=== PATIENT | female | born 1955 | race Two or more races ===

== ENCOUNTER 2021-09-29 06:00 | Day surgery (SDC) | payer OTHER ==
[~2021-09-29] VITALS: Ht 154.9 cm; Wt 60.3 kg
[~2021-09-29 06:00] MED LIST: CRESTOR5 MG PO; FOSTEUM PO; GABAPENTIN100 M2 PO; HYZAAR 100/25 T1 TAB PO; IMODIUM A-D2 MG PO; ZESTRIL5 MG PO; [UNRECOGNIZED DRUG - OTHER] PO
[2021-09-29] MEDS ORDERED: ULTRAM50 MG PO (11:44)
== END 2021-09-29 13:10 | disposition home or self-care (01) ==
LOC: CIR.AMB 06:00
PROVIDERS: ATTEND Surgery
DX: R15.9 Full incontinence of feces (principal); Z20.822 Contact with and (suspected) exposure to COVID-19; I11.0 Hypertensive heart disease with heart failure; I50.1 Left ventricular failure, unspecified; Z95.0 Presence of cardiac pacemaker
CPT/HCPCS: 64581; 64590; 95972; C1778; L8679

== ENCOUNTER 2025-03-10 08:33 | Outpatient (CLI) | payer OTHER ==
[~2025-03-10 08:33] MED LIST changes: +ULTRAM50 MG PO
== END 2025-03-10 08:37 | disposition home or self-care (01) ==
LOC: TOM 08:33
PROVIDERS: ATTEND Surgery
DX: R19.5 Other fecal abnormalities (principal); K56.50 Intestinal adhesions [bands], unspecified as to partial versus complete obstruction
CPT/HCPCS: 74177; Q9965

== ENCOUNTER 2025-03-11 14:43 | Outpatient (CLI) | payer OTHER | END 2025-03-11 14:51 | disposition home or self-care (01) | LOC: MRI 14:43 | DX: M79.671 Pain in right foot (principal); M72.2 Plantar fascial fibromatosis | CPT/HCPCS: 73718 ==